=== PATIENT | female | born 1960 | race Caucasian/White ===

== ENCOUNTER 2022-08-16 05:29 | Outpatient (CLI) | payer BC ==
[~2022-08-16] VITALS: Ht 157.5 cm; Wt 65.9 kg
[2022-08-20] MEDS ORDERED: FENO130C11 PO (09:08)
[2022-08-20] MEDS ORDERED: LEVO75CA5 PO (09:08)
== END 2022-08-20 09:19 | disposition home or self-care (01) ==
LOC: PREOP 05:29
PROVIDERS: ATTEND Otolaryngology Otolaryngology/Facial Plastic Surgery
DX: Z01.818 Encounter for other preprocedural examination (principal)

== ENCOUNTER 2022-08-23 07:54 | Day surgery (SDC) | payer BC ==
[2022-08-23] VITALS (9 sets, daily range): BP systolic 104–120; BP diastolic 62–89
[~2022-08-23] VITALS: Ht 157.5 cm; Wt 65.9 kg
[~2022-08-23 07:54] MED LIST: FENO130C11 PO; LEVO75CA5 PO
[2022-08-23] MEDS ORDERED: LACTATED RINGERS 1,000 ML IV PRN (08:30)
[2022-08-23] MEDS ORDERED: fentaNYL INJ 100 MCG/2 ML AMP ONE (08:40)
[2022-08-23] MEDS ORDERED: ONDANSETRON 4 MG/2 ML (SDV) Z0FRAN ONE (08:40)
[2022-08-23] MEDS ORDERED: LIDOCAINE PF 2% 5 ML (XYLOCAINE) VIAL ONE (08:40)
[2022-08-23] MEDS ORDERED: proPOfol 200 MG/20 ML (DIPRIVAN) VIAL IV ONE (08:40)
--- NOTE | 2022-08-23 08:57 | Progress Note-Pre Operative ---
Pre-Operative Progress Note Date of Available H&P: Aug 23, 2022 Date H&P Reviewed: Aug 23, 2022 Time H&P Reviewed: 08:30 History & Physical: H&P Reviewed, Patient Examed, No changes noted Changes from last HP NONE Pre-Operative Diagnosis: Chronic/REcurrent Right [place] JUAN ARCE MD Aug 23, 2022 08:57
--- NOTE | 2022-08-23 08:58 | Progress Note-Post Operative ---
Post-Operative Progess Note Surgeon (s)/Milk Vendor (s) Surgeon JUAN ARCE MD Milk Vendor n/a Pre-Operative Diagnosis Chronic/REcurrent Right [place] Post-Operative Diagnosis same Post-Op Procedure Note Date of Procedure: Aug 23, 2022 Name of Procedure Performed: Right Myringotomy wiht T-Tube Description & Findings Description and Findings: n/a Anesthesia Type gen Estimated Blood Loss minimal Packing none. Specimen(s) collected/removed none JUAN ARCE MD Aug 23, 2022 08:58
[2022-08-23] MEDS ORDERED: APAP 325 MG/10.15 ML LIQ (TYLENOL) UDC PO PRN (09:00)
[2022-08-23] MEDS ORDERED: ONDANSETRON 4 MG/2 ML (SDV) Z0FRAN IVP PRN (09:30)
[2022-08-23] MEDS ORDERED: morphine INJ 10 MG/ML 1ML (SYR OR VIAL) IVP ONE (09:30)
[2022-08-23] MEDS ORDERED: SEVOFLURANE (ULTANE) 15 ML INHAL SOLN ONE (09:31)
--- NOTE | 2022-08-23 09:33 | Anesthesia-General Post-Op ---
General Patient Condition Mental Status/LOC: Same as Preop Cardiovascular: Satisfactory Nausea/Vomiting: Absent Respiratory: Satisfactory Pain: Controlled Complications: Absent Post Op Complications Complications None Follow Up Care/Instructions Patient Instructions None needed. Anesthesia/Patient Condition Patient Condition Patient is doing well, no complaints, stable vital signs, no apparent adverse anesthesia problems. No complications reported per nursing. PARIS PROCTOR DO Aug 23, 2022 09:33
[2022-08-23] MEDS ORDERED: OFLO5DRO33 EACH EAR (10:20)
== END 2022-08-23 10:46 | disposition home or self-care (01) ==
LOC: SDC 07:54
PROVIDERS: ATTEND Otolaryngology Otolaryngology/Facial Plastic Surgery
DX: H65.21 Chronic serous otitis media, right ear (principal); H68.101 Unspecified obstruction of Eustachian tube, right ear; T85.628A Displacement of other specified internal prosthetic devices, implants and grafts, initial encounter; H90.A11 Conductive hearing loss, unilateral, right ear with restricted hearing on the contralateral side; H90.A22 Sensorineural hearing loss, unilateral, left ear, with restricted hearing on the contralateral side; Y72.8 Miscellaneous otorhinolaryngological devices associated with adverse incidents, not elsewhere classified
CPT/HCPCS: 87081